=== PATIENT | female | born 1985 | race Caucasian/White ===

== ENCOUNTER 2017-06-14 10:18 | Emergency (ER) | payer OTHER ==
[~2017-06-14] VITALS: Ht 170.2 cm; Wt 79.4 kg
[2017-06-14 10:27] VITALS: BP_SYST 151
--- NOTE | 2017-06-14 10:31 | NUR ---
Ambulatory to bed 5, placed in gown for evaluation
--- NOTE | 2017-06-14 10:39 | NUR ---
Pt complains of headache, left sided neck pain with generalized weakness for the past 2 days. Pt states she felt like she had a fever with chills, nausea and diarrhea 2 days ago but now her head just hurts and the lights are bothering her. Pt states she had viral menigitis before and thinks she might have it again. Pt is on immunosupressant drugs. Pt ambulated into the ER with no noted difficulty, has a ride in the waiting room. No other injuries/complaints per pt or noted.
--- NOTE | 2017-06-14 10:59 | NUR ---
ER Dr. Carranza at bedside examining patient.
[2017-06-14] MEDS ORDERED: DIPHENHYDRAMINE INJ 50 MG/ML VIAL IVP ONE (11:15)
[2017-06-14] MEDS ORDERED: METOCLOPRAMIDE HCL 10 MG/2 ML VIAL IVP ONE (11:15)
[2017-06-14 11:27] LABS: BASOPHILS % (AUTO) 0.2 % (0.0-2.0); EOSINOPHILS # (AUTO) 0.4 K/uL (0.0-0.4); EOSINOPHILS % (AUTO) 2.8 % (0.0-4.0); HEMATOCRIT 37.6 % (36-48); HEMOGLOBIN 12.9 g/dL (12.0-16.0); LYMPHOCYTES # (AUTO) 1.7 K/uL (1.0-5.5); LYMPHOCYTES % (AUTO) 12.6 % (20.5-51.5); MEAN CORPUSCULAR HEMOGLOBIN 31 pg (27-31); MEAN CORPUSCULAR HGB CONC 34 % (32-36); MEAN CORPUSCULAR VOLUME 90 fL (79.0-98.0); MONOCYTES % (AUTO) 7.2 % (1.7-9.3); NEUTROPHILS # (AUTO) 10.5 K/uL (1.8-7.7); NEUTROPHILS % (AUTO) 77.2 % (40.0-70.0); PLATELET COUNT (AUTO) 282 K/uL (130-430); RED BLOOD CELL COUNT(AUTO) 4.17 MIL/uL (4.2-6.2); RED CELL DISTRIBUTION WIDTH 13.2 % (9.0-15.0); WHITE BLOOD COUNT (AUTO) 13.6 K/uL (4.8-10.8)
--- NOTE | 2017-06-14 11:32 | NUR ---
Pt was given medications, no adverse reaction. Will continue to monitor.
[2017-06-14 11:38] LABS: CALCIUM 8.9 mg/dL (8.4-11.0); CREATININE 0.72 mg/dL (0.55-1.30); POTASSIUM 3.2 mmol/L (3.5-5.1)
--- NOTE | 2017-06-14 11:40 | NUR ---
Pt was taken to radiology in stable condition.
[2017-06-14 11:43] LABS: PROTHROMBIN TIME 10.8 SECS (9.5-12.5)
[2017-06-14 11:44] LABS: TOTAL BILIRUBIN 0.8 mg/dL (0.0-1.0)
[2017-06-14 11:45] LABS: ALBUMIN 3.3 g/dL (3.4-4.8)
--- NOTE | 2017-06-14 11:48 | NUR ---
Marbin sarmiento in ED - 06/14/17 at 1150 by LOURDES Pt returned from radiology in stable condition
--- NOTE | 2017-06-14 11:49 | NUR ---
Pt returned from radiology in stable condition.
[2017-06-14 12:26] VITALS: BP_SYST 134
--- NOTE | 2017-06-14 12:26 | NUR ---
Patient given written and verbal discharge instructions and verbalizes understanding. ER MD discussed with patient the results and treatment provided. Patient in stable condition. ID arm band removed. IV catheter removed intact and dressing applied, no active bleeding. Rx of Sudafed, Azithromycin, and Motrin given. Patient educated on pain management and to follow up with PMD. Pain Scale 0. Opportunity for questions provided and answered.
== END 2017-06-14 12:26 | disposition home or self-care (01) ==
LOC: SED 10:18
DX: J40 Bronchitis, not specified as acute or chronic (principal); Z90.49 Acquired absence of other specified parts of digestive tract; Z90.89 Acquired absence of other organs; Z90.710 Acquired absence of both cervix and uterus
CPT/HCPCS: 36415; 70450; 80053; 81025; 85025; 85610; 85730; 96374; 96375; 99285; J1200; J2765